=== PATIENT | female | born 1945 | race Caucasian/White ===

== ENCOUNTER 2016-06-08 12:40 | Outpatient (CLI) | payer OTHER | END 2016-06-08 23:00 | LOC: US SRH 12:40 | DX: I35.1 Nonrheumatic aortic (valve) insufficiency (principal); Z53.29 Procedure and treatment not carried out because of patient's decision for other reasons ==

== ENCOUNTER 2016-06-15 10:11 | Outpatient (CLI) | payer OTHER | END 2016-06-15 23:00 | LOC: US SRH 10:11 | DX: I35.1 Nonrheumatic aortic (valve) insufficiency (principal) ==

== ENCOUNTER 2016-06-20 09:54 | Outpatient (CLI) | payer OTHER ==
--- NOTE | 2016-06-20 15:32 | DIAGNOSTIC IMAGING REPORT ---
REFERRING PHYSICIAN/PROVIDER: Salina Meraz MD CONSULTING ELECT[employer]IC [employer]OR REPAIRING SUPERVISOR: David Joe Jr MD PROCEDURE: M-mode 2D echocardiography with spectral and color flow Doppler TECHNICAL QUALITY: The study quality was technically adequate INDICATION: AORTIC VALVE INSUFFICIENCY RHYTHM DURING PROCEDURE: The patient was in normal sinus rhythm during the exam. INTERPRETATIONS: LEFT VENTRICLE: The left ventricle is normal in size, wall thickness, and systolic function without any focal wall motion abnormalities. There is no obvious ventricular septal defect visualized. The ejection fraction is estimated to be 55-60%. Assessment of diastolic parameters indicates normal left ventricular diastolic function and normal filling pressures. RIGHT VENTRICLE: The right ventricle is normal in size and function. ATRIA: Both atria are mildly dilated. The interatrial septum is intact with no evidence for an atrial septal defect. MITRAL VALVE: The mitral valve is normal in structure and function. There is mild mitral regurgitation. AORTIC VALVE: The aortic valve is trileaflet. Aortic valve opens well. There is mild to moderate aortic regurgitation. TRICUSPID VALVE: The tricuspid valve leaflets are thin and pliable. There is trace or physiologic amount of tricuspid regurgitation. The right ventricular systolic pressure is estimated at 29 mmHg assuming a right atrial pressure of 3 mmHg. PULMONIC VALVE: The pulmonic valve is normal in structure and function. There is trace or physiologic amount of pulmonic regurgitation. GREAT VESSELS: The aorta root is normal size. The ascending aorta is mildly enlarged at 3.6 cm. The IVC is of normal diameter collapses greater than 50% with the sniff. This suggests a low right atrial pressure of 3 mmHg. PERICARDIUM: There is no pericardial effusion. IMPRESSION: 1. There is normal LV and RV systolic function. 2. The right ventricular systolic pressure is estimated at 29 mmHg. 3. Both atria are mildly dilated. 4. There is mild to moderate aortic regurgitation with no other evidence of significant valvular abnormalities.
== END 2016-06-20 23:00 ==
LOC: US SRH 09:54
DX: I35.1 Nonrheumatic aortic (valve) insufficiency (principal)